=== PATIENT | female | born 1975 | race African-American/Black ===

== ENCOUNTER → 2018-07-18 16:01 | Outpatient (CLI) | payer OTHER, SELFPAY ==
--- NOTE | 2018-07-18 | DI.MRI.S_ITS ---
PROCEDURE: MR STROKE Pre- and post-contrast brain MRI, non-contrast brain MR angiogram, pre- and postcontrast neck MR angiogram INDICATIONS: UNK. Amnesia and nosebleeds. TECHNIQUE: Brain: Noncontrast axial T1 spin echo, axial T2 fast spin echo, sagittal and axial FLAIR, coronal T2 fast spin echo, axial gradient echo, axial diffusion and ADC through the brain. After the administration of contrast, axial 3D VIBE of the cranial vasculature and brain. Brain MRA: Non-contrast 3-D time of flight MR angiogram, with multiple uexjctg-nxdlwzhuj-sjhidcjajk (MIP) reformats performed. Neck MRA: Axial and sagittal TruFISP through the neck. Coronal dynamic MR angiogram during administration of contrast in the arterial and venous phases, with 3-dimenstional fxmkvba-nspfjmxyr-apilynyqqz (MIP) reformats constructed from subtraction images. COMPARISON: None. FINDINGS: Image quality: Diagnostic. BRAIN: CSF spaces: Ventricles are normal in size and shape. Basal cisterns are patent. No extra-axial fluid collections. Brain: No intracranial bleeds or mass effects. Figueroa-white matter interface is normal. Diffusion weighted images show no acute ischemic insults. Brainstem appears normal. Normal intravascular flow voids are present. No abnormal intracranial enhancement. Skull and face: Calvarial marrow signal is normal. Orbits appear normal. Sinuses: Sinuses and mastoids are clear. BRAIN MR ANGIOGRAM: Anterior circulation: Intracranial internal carotid arteries are normal in size and enhancement. The flow within the paired anterior cerebral arteries is normal and symmetric. The flow within the middle cerebral arteries is normal and symmetric. The anterior communicating artery is seen. No stenoses, occlusions, or aneurysms. Posterior circulation: The visualized portions of the vertebral arteries demonstrate normal caliber, and join to form a normal appearing basilar artery. The flow within the posterior cerebral arteries is normal and symmetric. No stenoses, occlusions, or aneurysms. NECK MR ANGIOGRAM: Carotids: Great vessels demonstrate a conventional anatomy as they arise from the aortic arch. The origins of the common carotid arteries appear patent. The calibers and courses of both common carotid arteries are normal. The bifurcation regions appear normal bilaterally. The internal carotid arteries demonstrate normal course and caliber. Posterior circulation: The origins of the vertebral arteries appear patent. More superior portions of both vertebral arteries demonstrate normal course and caliber, and join to form a normal appearing basilar artery. Miscellaneous: Subclavian arteries appear patent. Pre-contrast images through the neck show no soft tissue abnormalities. IMPRESSION: BRAIN MRI: Normal intracranial study. No findings of acute or subacute infarction can be seen. BRAIN MR ANGIOGRAM: No significant intracranial arterial abnormality. NECK MR ANGIOGRAM: No hemodynamically significant stenosis can be seen of the arteries of the neck. Dictated by: Noah Muse M.D. on 07/18/2018 at 17:01 Approved by: Noah Muse M.D. on 07/18/2018 at 17:05
== END ==
PROVIDERS: Visit Provider Family Medicine
DX: G45.4 Transient global amnesia (principal); R04.0 Epistaxis
CPT/HCPCS: 70553; A9579

== ENCOUNTER → 2019-07-13 10:16 | Outpatient (CLI) | payer SELFPAY ==
--- NOTE | 2019-07-13 | DI.RAD.S_ITS ---
PROCEDURE: XR CHEST 2V INDICATIONS: chest pain TECHNIQUE: 2 views of the chest were acquired. COMPARISON: None. FINDINGS: Surgical changes and devices: None. Lungs and pleura: Lungs are clear. No pleural effusions or pneumothorax. Mediastinum: Mediastinal contours are normal. Heart size is normal. Bones and chest wall: No suspicious bony abnormalities. Soft tissues appear unremarkable. IMPRESSION: No acute disease. Dictated by: Darwin Covington M.D. on 07/13/2019 at 13:49 Approved by: Darwin Covington M.D. on 07/13/2019 at 13:49
== END ==
PROVIDERS: Visit Provider Family Medicine
DX: R07.9 Chest pain, unspecified (principal)
CPT/HCPCS: 71046

== ENCOUNTER → 2019-07-18 08:53 | Outpatient (CLI) | payer SELFPAY ==
--- NOTE | 2019-07-18 | DI.CT.S_ITS ---
PROCEDURE: CT SOFT TISSUE NECK W CON INDICATIONS: cervicalgia TECHNIQUE: After the administration of intravenous contrast, 3.0 mm axial sections acquired from the sella to the aortic arch. Additional oblique axial 3.0 mm sections acquired through the pharynx. 3 mm thick coronal and sagittal reformats were generated. For radiation dose reduction, the following was used: automated exposure control. COMPARISON: None. FINDINGS: Image quality: Excellent. Lymph nodes: Lymphadenopathy based on size criteria. Vessels: Visualized vasculature appears patent. Neck spaces: The oropharynx, nasopharynx, and pharynx demonstrate no mucosal lesions. The vocal cords, false vocal cords, pyriform sinuses, epiglottis, vallecula, and tongue base all appear normal. Extramucosal spaces appear unremarkable. Glands: The parotid and submandibular glands appear normal. Thyroid gland thyroid gland is normal.. Miscellaneous: Visualized brain and orbits appear normal. Lung apices appear clear. Superficial soft tissues appear normal. Bones: No suspicious bony lesions. Visualized sinuses and mastoids appear unremarkable. IMPRESSION: 1. No abnormal mass, soft tissue inflammation/edema or abscess. 2. No lymphadenopathy based on size criteria. 3. No abnormality identified deep to the metallic BB localizer placed over the anterior left neck in the region of patient's reported pain. Dictated by: Tamiko June MD, PhD on 07/18/2019 at 10:57 Approved by: Tamiko June MD, PhD on 07/18/2019 at 11:05
== END ==
PROVIDERS: PCP Family Medicine; Visit Provider Family Medicine
DX: M54.2 Cervicalgia (principal)
CPT/HCPCS: 70491; Q9967